=== PATIENT | male | born 1950 | race Caucasian/White ===

== ENCOUNTER 2016-10-22 16:38 | Inpatient (IN) ==
[2016-10-22] MEDS ORDERED: NS 1,000 ML IV ONE (18:08)
[2016-10-22 18:11] LABS: MANUAL DIFF NEEDED? NO
[2016-10-22 18:14] LABS: BASO% 0.2 % (0.0-0.8); EOS# 0.46 X1000 (0.0-0.7); EOS% 7.2 % (0.0-10.0); HEMOGLOBIN 10.9 g/dL (14.0-18.0); IMM GRAN# 0.04 X1000 (0.0-0.04); IMM GRAN% 0.6 % (0.0-0.5); LYMPH# 0.71 X1000 (1.2-3.4); LYMPH% 11.1 % (20.5-51.1); MCH 27.9 PG (27-31); MCHC 34.1 g/dL (33-37); MCV 81.8 FL (81-99); MONO# 0.63 X1000 (0.11-0.59); MONO% 9.9 % (1.7-9.3); PLT 160 X1000 (130-400); RBC 3.91 XMIL (4.7-6.1)
--- NOTE | 2016-10-22 18:32 | PROVIDER DOCUMENTATION ---
HPI-Abdominal Pain/GI Problem - General Chief Complaint: Diarrhea Stated Complaint: n/v/d weakness fall Time Seen by Provider: 10/22/16 16:39 Source: patient Allergies/Adverse Reactions: Patient Allergies Allergy/AdvReac Type Severity Reaction Status Date / Time Sulfa (Sulfonamide AdvReac Mild RASH Verified 10/22/16 17:21 Antibiotics) Home Medications: Home Medication List Medication Instructions Recorded Confirmed Last Taken Type Amitriptyline HCl [Amitriptyline 1 tab PO DAILY 10/23/16 10/23/16 Unknown History HCl] Prednisone [Prednisone] 1 tab PO DAILY 10/23/16 10/23/16 Unknown History Tramadol HCl [Tramadol HCl] 1 tab PO TID PRN PRN 10/23/16 10/23/16 Unknown History Valsartan [Valsartan] 1 tab PO DAILY 10/23/16 10/23/16 Unknown History - History of Present Illness-ABD Nature of Presenting Problems: Pt states that for 2 weeks he has been having diarrhea daily up to 7x/day, no vomiting. Since then he has been gradually feeling more dizzi, and has fallen down 4 times. Dizziness is worse when he gets up out of bed or a chair, sometimes just moving his head makes him dizzi. Pt states that he is afraid of eating because gets diarrhea immediately, it's been almost 4 days without food, but cannot keep up with fluids. Review of Systems - Adult - REVIEW OF SYSTEMS - ADULT Constitutional: reports: no symptoms reported Eyes: reports: no symptoms reported Ears, Nose, Mouth & Throat: reports: no symptoms reported Cardiovascular: reports: no symptoms reported Respiratory: reports: no symptoms reported Gastrointestinal: reports: no symptoms reported Genitourinary: reports: no symptoms reported Musculoskeletal: reports: muscle weakness Neurological: reports: dizziness/vertigo Psychiatric: reports: no symptoms reported Endocrine: reports: no symptoms reported Hematologic/Lymphatic: reports: no symptoms reported Allergic/Immunologic: reports: no symptoms reported All Other Systems: Reviewed and Negative Past History - Adult - PAST MEDICAL HISTORY-ADULT Review of Records: reports: Old Records Reviewed (sarcoid, HTN, gout, DM2), Nursing Assessment Review, Medications Reviewed, Social history reviewed & non- contributory. Physical Exam-General - PHYSICAL EXAM-ADULT Initial Vital Signs Reviewed: Yes - CONSTITUTIONAL General Appearance: appears well, alert, anxious - EYES Eyes: PERRL/EOMI, pink conjunctivae - HEAD, EARS, NOSE, MOUTH & THROAT HENMT: normocephalic/atraumatic, other (very dry mucous membranes) - NECK Neck: non-tender, supple - RESPIRATORY Respiratory: normal breath sounds, no respiratory distress - CARDIOVASCULAR Cardiovascular: regular rate, rhythm - GASTROINTESTINAL (ABDOMEN) Abdominal Exam: non tender, soft - LYMPHATIC Lymphatic: no adenopathy - MUSCULOSKELETAL Back Exam: normal inspection, no CVA tenderness Extremity: normal gait - SKIN Integumentary: normal color - NEUROLOGIC Neurologic: grossly normal - PSYCHIATRIC Psych/Mental Status: normal mood/affect Progress - PLAN OF CARE/RESULTS Progress/Plan/Lab Results: Vital Signs - 8 hr 10/22/16 17:15 Temperature 98.3 F Pulse Rate 93 H Respiratory Rate 18 Blood Pressure 139/94 O2 Sat by Pulse Oximetry 97 Laboratory Results - last 24 hr 10/22/16 17:51 WBC 6.39 RBC 3.91 L Hgb 10.9 L Hct 32.0 L MCV 81.8 MCH 27.9 MCHC 34.1 RDW Std Deviation 15.6 H Plt Count 160 MPV 10.0 Immature Gran % (Auto) 0.6 H Neut % (Auto) 71.0 Lymph % (Auto) 11.1 L [place] % (Auto) 9.9 H Eos % (Auto) 7.2 Baso % (Auto) 0.2 Immature Gran # (Auto) 0.04 Neut # (Auto) 4.54 Lymph # (Auto) 0.71 L [place] # (Auto) 0.63 H Eos # (Auto) 0.46 Baso # (Auto) 0.01 Orders Category Date Time Status IV Insertion ORDERED Care 10/22/16 18:07 Active CBC WITH DIFF [HEME] Stat Lab 10/22/16 17:51 Completed CMP [COMPREHENSIVE METABOLIC PANEL] [CHEM] Stat Lab 10/22/16 17:51 Received 0.9% Sodium Chloride Inj [Ns] 1,000 ml Med 10/22/16 18:08 Active IV 999 mls/hr Result Diagrams: 10/22/16 17:51 10/22/16 17:51 - REASSESSMENT Reassessment #1 Reassessment Comment: no improvement after IV fluids, pt has no prior knowledge of renal issues Departure - Departure Date of Disposition Decision: 10/22/16 Time of Disposition Decision: 19:35 DIAGNOSIS: Hyponatremia Renal failure Qualifiers: Renal failure chronicity: acute Acute renal failure type: unspecified Qualified Code(s): N17.9 - Acute kidney failure, unspecified Disposition: ADMITTED INPATIENT 09 Certified Medical Emergency: Emergent Condition: Stable - Critical Care Note This patient required my direct & personal management of CC.: No Attestation - Physician/ KURTIS Attestation Patient care was provided by Advanced Practice Provider:: Yes Advanced Practice Provider documentation review:: The Mid-level provider documentation, treatment plan and medical decision making was reviewed by the physician who agrees with all treatment and medical decision making by the MLP. The physician spent face to face time with patient:: Yes Advanced Practice Provider documentation review:: Supervising physician onsite and consulted in the evaluation and care of this patient. The physician did have a face to face encounter with the patient.
[2016-10-22 18:44] LABS: ALBUMIN 2.3 g/dL (3.5-5.0); CALCIUM 6.9 mg/dL (8.8-10.2); POTASSIUM 3.5 mmol/L (3.5-5.1); TOTAL BILIRUBIN 0.86 mg/dL (0.20-1.00); TOTAL PROTEIN 5.7 g/dL (6.3-8.3)
[2016-10-22] MEDS ORDERED: D50W SYRINGE ONE ×2 (20:30→20:38)
[2016-10-22] MEDS ORDERED: NS 1,000 ML ONE (20:39)
--- NOTE | 2016-10-22 23:19 | HISTORY AND PHYSICAL ---
CHIEF COMPLAINT: Diarrhea for 2 weeks. HISTORY OF PRESENT ILLNESS: Mr. Coulter is a 65-year-old male with a history of hypertension, diabetes, sarcoidosis, gout, rheumatoid arthritis, who presented to the ER today for persistent diarrhea for 2 weeks. He described the diarrhea as watery, yellow, nonbloody, no melena, roughly a couple of times a day. Every time when she eats or drinks, there will be diarrhea. Denies any fever or chills and abdominal pain associated with the diarrhea. Denies nausea. Denies vomiting. In the meantime, he also has significant weakness due to the diarrhea. He has not been eating and drinking at all for at least 4 days per his description. At some point he had multiple small fall episodes. There was one episode that he described where he lost consciousness and woke up probably the next day in the morning. Denies any head injury. No bleeding. No neurological deficits noted. He lives alone and there are no family members around him for care. He states he has not been having a bath for a couple of days due to this weakness. On his arrival at the ER, the initial lab work showed he has a BUN of 92 and creatinine of 7.5. GFR 7. He denies having a history of kidney problems. The reason for the failure is probably dehydration. At this point the patient will be admitted for hospitalization to investigate the reason for the kidney failure and also hydration. REVIEW OF SYSTEMS: A 10-point review of systems was obtained. Please refer to the HPI for pertinent positives and negatives. PHYSICAL EXAMINATION: VITAL SIGNS: Temperature is 98.3, heart rate 93, respiratory rate 18, blood pressure 139/94, O2 saturation 97 on room air. GENERAL: A well-developed male in no acute distress. Looks weak. Talks slowly. HEENT: Head normocephalic, atraumatic. EOMI. DENEEN. Oral mucosa is dry. NECK: No JVD. No carotid bruit. CARDIOVASCULAR: Regular rate, regular rhythm. Normal S1 and S2. PULMONARY: Clear to auscultation bilaterally. No wheezing. No rales. GASTROINTESTINAL: Abdomen is soft, nontender. No rebound. Nondistended. Active bowel sounds. EXTREMITIES: No edema. Pulses present in all 4 extremities. There are several scratch lam on both knees and elbows. SKIN: No rash. No cyanosis. Normal capillary refill. NEUROLOGICAL: Patient is alert, awake and oriented. No focal deficits noted. I did not have the patient get out of the bed or walk due to his general weakness. LABORATORY DATA: WBC 6.39, hemoglobin and hematocrit 10.9 and 32, platelets 160. Chemistries: Sodium 128, potassium 3.5, chloride 91, bicarb 12, BUN 92, creatinine 7.5, glucose 142, calcium 6.9, AST 28, ALT 49. ASSESSMENT: 1. Acute renal failure. 2. Electrolyte abnormalities. 3. Hypertension. 4. Diabetes. 5. Sarcoidosis. 6. Gout. PLAN: We will admit patient to the medical floor and put him on a telemetry bed with hydration running normal saline at 150 mL per hour. We will recheck his chemistry tomorrow morning. Hopefully with hydration his kidney function and electrolyte abnormalities will return close to the normal range. In the meantime, we are going to order a renal ultrasound and urine sodium test to investigate the source for this episode of acute renal failure which is probably most likely prerenal but, given he has been using NSAIDs and also metformin before this episode, those medications might also have some contribution to it. We also will consult the multi mission helicopter aircrewman for further investigations. At this point, we are holding all his home medications for high blood pressure and diabetes until his dehydration is improved. For DVT prophylaxis, will use SCDs. For GI prophylaxis, we are using Nexium. Full code. cc: Lakisha Carlson MD
[2016-10-22] MEDS ORDERED: ZOFRAN IV PRN (23:44)
[2016-10-23] MEDS: NS 1,000 ML IV SCH ×2 (00:22→07:48)
[2016-10-23 01:06] LABS: ALBUMIN 2.5 g/dL (3.5-5.0); POTASSIUM 3.6 mmol/L (3.5-5.1)
[2016-10-23 01:08] LABS: CALCIUM 6.8 mg/dL (8.8-10.2)
[2016-10-23] MEDS ORDERED: CALCIUM GLUCONATE 1 GM in NS 50 ML IV ONE (02:15)
[2016-10-23 06:34] LABS: HEMOGLOBIN A1C 6.1 % (4.8-6.0)
[2016-10-23 06:58] LABS: ALBUMIN 2.5 g/dL (3.5-5.0); CALCIUM 7.7 mg/dL (8.8-10.2); MAGNESIUM 1.9 mg/dL (1.5-2.7); TOTAL BILIRUBIN 0.76 mg/dL (0.20-1.00); TOTAL PROTEIN 5.7 g/dL (6.3-8.3)
[2016-10-23] MEDS ORDERED: NS 500 ML IV ONE (08:46)
[2016-10-23] MEDS ORDERED: CALCIUM GLUCONATE 1 GM in NS 100 ML IV ONE (09:00)
--- NOTE | 2016-10-23 09:17 | Diag Imaging Result Doc PS360 ---
EXAM: US RENAL 2 (RETROPER) COMPLETE HISTORY: acute renal failure TECHNIQUE: Renal ultrasound COMMENT: There is no evidence of hydronephrosis. There are multiloculated door clustered cysts present in the right kidney which in aggregate is more than 4 cm in diameter with an additional 1.3 cm cyst. The bladder is unremarkable in appearance. The right kidney measures 12.7 x 5.1 x 5.7 cm left kidney 11.8 x 5.5 x 5.7 cm. IMPRESSION: Right renal cysts. No evidence of obstructive uropathy. Electronically signed by Ashu Worrell 10/23/2016 9:14 AM
[2016-10-23] MEDS: PRILOSEC PO SCH (09:27)
[2016-10-23] MEDS: TYLENOL PO PRN ×3 (09:40→23:57)
[2016-10-23] MEDS: POTASSIUM CHLORIDE 60 MEQ in NS 500 ML IV SCH ×2 (12:16→17:20)
--- NOTE | 2016-10-23 14:00 | CONSULTATION ---
DATE OF CONSULTATION: 10/23/2016 REASON FOR ADMISSION: Weakness following acute kidney injury, nausea, vomiting and diarrhea. REASON FOR CONSULTATION: Acute kidney injury. CONSULTING PHYSICIAN: Dr. Barrios. HISTORY OF PRESENT ILLNESS: This is a 65-year-old gentleman with a past medical history of hypertension and diabetes who does not know of any previous decline in his renal function, who presented to the emergency room after episodes of diarrhea for about 2 weeks along with episodes of falling and actually having been down on the floor for possibly an 8 hour period of time after falling at night and not being able to get up until mid morning the next day. In the emergency room, he was found to have an initial creatinine of 7.5 and a BUN of 92. He was felt to be dehydrated. He has been dosed with normal saline now at 150 an hour for close to 24 hours at this point. His renal function really has not improved significantly although it is down to 6.2 today. He seemed mildly acidotic with a CO2 of 15. He did have some urine studies with a FENA score calculated at 0.3%. We have been asked to see the patient for his acute kidney injury. The patient this morning is no longer having nausea, vomiting or diarrhea. He is feeling mildly better and has been able to ambulate with assistance. He has just gotten back from ultrasound. PAST MEDICAL HISTORY: Hypertension, diabetes, sarcoidosis, gout and rheumatoid arthritis. PAST SURGICAL HISTORY: ALLERGIES: Sulfa. HOME MEDICATIONS: Prednisone, sulindac, duloxetine, zolpidem, amlodipine, tramadol, amitriptyline, valsartan, pantoprazole, metformin and Benemid. FAMILY HISTORY: Noncontributory. SOCIAL HISTORY: No ETOH, tobacco or illicit drug use. REVIEW OF SYSTEMS: Weakness, nausea, vomiting, diarrhea falling, and loss consciousness. PHYSICAL EXAMINATION: Vital Signs: Temperature 98.2 degrees, pulse 97, respiratory rate 20, blood pressure 83/48, intake 480 mL. Output has not been measured. General: This is a middle- aged gentleman resting in bed. He is awake and alert in no acute distress. HEENT: Normocephalic, atraumatic. Conjunctivae pink. JUSTINE. Oral mucosa moist. Neck : Supple. Trachea midline. No JVD. Cardiovascular: Regular rate and rhythm. There is no murmur or gallop. Pulmonary: He has equal excursion. He is clear bilaterally. There is no increased work of breathing. Abdomen: Soft. Positive bowel sounds. : Not inspected. He is voiding. Extremities: No clubbing, cyanosis or edema. Integumentary: Skin is pale, warm, and dry. Neurologic: Grossly nonfocal. LABORATORY DATA: WBC of 6.3, hemoglobin 10.9, sodium 133, potassium 3.0, chloride 98, CO2 15, BUN 93, creatinine 6.2 (7.5). FENA at 0.39%. ASSESSMENT AND PLAN: 1. Acute kidney injury. I do not have any old labs to indicate if this patient has any chronic kidney disease secondary to his hypertension or diabetes although he is at risk for that. His renal function had a modest improvement overnight with IV fluids. The patient does not have any indications for dialysis at this time. We will continue the current IV fluids and will also check a CPK as the patient had been down in the floor for some period of time. He does have some acidosis noted. Nonetheless, he has correct current therapy initiated with IV fluid resuscitation. We will continue this and check labs in the morning. Further decisions to follow. 2. Electrolytes, acid-base balance. See #1 for plan. 3. Hypertension. He is mildly hypotensive. This may be fluid deficit related. 4. Nausea, vomiting, and diarrhea followed by primary. Dictated by DAVID Alexis for Cecilio Rodriguez MD Patient seen, data reviewed, discussed with Crystal Christianson on 10/23/16. I agree with the above assessment and plan of care. cc: MD Orestes Gordon MD [facility]
[2016-10-23] MEDS ORDERED: POTASSIUM CHLORIDE 40 MEQ/SWI 40 MEQ/100 ML IVPB IV ONE (18:27)
--- NOTE | 2016-10-23 18:57 | PROGRESS NOTE ---
DATE: 10/23/2016 SUBJECTIVE: A 65-year-old white gentleman admitted to the hospital with diarrhea, hypotension acute kidney injury. The patient was seen in my office for arthritis due to sarcoidosis. He got better off the steroids. Apparently started having diarrhea taking blood pressure medicine, became dizzy and hypotensive. He had calcium that was low and was replaced. PAST MEDICAL HISTORY: Reviewed. PAST SURGICAL HISTORY: Reviewed. MEDICINES: Reviewed. REVIEW OF SYSTEMS: HEENT: Blood pressure is low. No headache, dizziness. Cardiopulmonary: No chest pain, shortness of breath, PND, or orthopnea. GI: No nausea, vomiting, abdominal pain or diarrhea. : History of hesitancy, frequency. Extremities: No swelling of legs. Also history of injuries with abrasions on the hands from the fall. PHYSICAL EXAMINATION: Vital Signs: Afebrile. Blood pressure is still low; 5 feet 11 inches, and 110 pounds. HEENT: Within normal limits. Neck: Supple. Chest: Clear. Heart: Sounds are regular. Abdomen: Belly is soft. Nontender. Good bowel sounds. No masses palpable. Extremities: No peripheral edema, cyanosis. No obvious neurological deficits. DATA: Renal ultrasound benign cyst and no evidence of obstructive uropathy. ASSESSMENT AND PLAN: 1. Acute kidney injury due to hypotension and intravascular volume depletion. Continue intravenous fluids. We will give a bolus and keep the blood pressure more than 100. 2. Diarrhea. Needs to workup on stool cultures and Clostridium difficile was negative, and stool for occult blood was negative. 3. Gastrointestinal prophylaxis with intravenous Protonix. 4. Hypocalcemia. Calcium gluconate and the patient was seen in the ultrasound room. Bladder is full, we will Pereira catheter and follow up on daily renal profile and slowly reconcile his home medicines. 5. Deep venous thrombosis prophylaxis with antithrombotic stockings. LEVEL OF DOCUMENTATION: Thirty-five minutes. cc: Orestes Barrios MD
[2016-10-24] MEDS: TYLENOL PO PRN (05:58)
[2016-10-24] MEDS: PRILOSEC PO SCH (05:59)
[2016-10-24 06:41] LABS: MANUAL DIFF NEEDED? NO
[2016-10-24 06:42] LABS: BASO% 0.4 % (0.0-0.8); EOS# 0.43 X1000 (0.0-0.7); EOS% 15.2 % (0.0-10.0); HEMATOCRIT 31.7 % (42.0-52.0); HEMOGLOBIN 10.5 g/dL (14.0-18.0); LYMPH# 0.47 X1000 (1.2-3.4); LYMPH% 16.7 % (20.5-51.1); MCH 27.6 PG (27-31); MCHC 33.1 g/dL (33-37); MCV 83.4 FL (81-99); MONO# 0.26 X1000 (0.11-0.59); MONO% 9.2 % (1.7-9.3); MPV 10.4 FL (7.4-10.4); NEUT% 58.5 % (42.2-75.2); PLT 134 X1000 (130-400)
[2016-10-24 07:05] LABS: ALBUMIN 2.3 g/dL (3.5-5.0); CALCIUM 7.4 mg/dL (8.8-10.2); POTASSIUM 3.7 mmol/L (3.5-5.1)
--- NOTE | 2016-10-24 10:00 | PROGRESS NOTE ---
DATE: 10/24/2016 SUBJECTIVE: Patient is sitting up in bed. He had dislodged his IV access this morning. Currently, has no access. States he has been able to drink fluids. He states that he still does not have much of an appetite. OBJECTIVE: Vital Signs: Temperature 98.3 degrees, pulse 105, respiratory rate is 18, blood pressure 106/56. Intake 3.6 L. Output 650 mL. General: This is a middle- aged gentleman resting in bed. He is awake and alert. He is in no acute distress. HEENT: Normocephalic, atraumatic. His oral mucosa is moist. Neck: Supple. Trachea midline without JVD. Cardiovascular: He has a regular rate and rhythm. No murmur or gallop is appreciated. Pulmonary: He is clear bilaterally. He has equal excursion without increased work of breathing on 2 L nasal cannula. Abdomen: Obese, soft, positive bowel sounds. : Not inspected. He continues to void. Extremities: No clubbing, cyanosis, or edema. Integumentary: Skin is pale, warm, and dry. LAB DATA: WBC of 2.8, hemoglobin 10.5. Sodium 136, potassium 3.7, CO2 14, BUN 73, creatinine at 3.1. Renal ultrasound with kidney size 12.7 cm x 11.8 cm with right renal cyst noted. ASSESSMENT AND PLAN: 1. Acute kidney injury, secondary to intravascular volume depletion and concurrent angiotensin- receptor bulmaro use. The patient's Diovan has been held at this time. He continues with fluid resuscitation. Anticipate that he will have some further improvement by morning. I did discuss with the patient we do not know what his baseline creatinine is. But we would be glad to follow up with him in the office after discharge, if his renal function remains abnormal. He is at high risk to have chronic kidney disease secondary to his diabetes and hypertension. 2. Electrolytes, acid-base balance. These have been stable. 3. Fluid volume. He is not overloaded. His urine output has begun picking up. Dictated by DAVID Alexis for Cecilio Rodriguez MD Patient seen, data reviewed, discussed with Crystal Christianson on 10/23/16. I agree with the above assessment and plan of care. cc: MD Orestes Gordon MD [facility]
--- NOTE | 2016-10-24 18:43 | PROGRESS NOTE ---
DATE: 10/24/2016 SUBJECTIVE: The patient is doing very well. Complains of right ear pain. REVIEW OF SYSTEMS: None reported. EXAMINATION: Afebrile. Pulse is 98, blood pressure is 106/56. Input and output positive 3 L.HEENT: Within normal limits. Right ear no wax noted. Chest: Clear. Heart: Sounds are regular. Abdomen: Belly is soft, nontender. Good bowel sounds. No masses palpable. Extremities: No peripheral edema, cyanosis. Neurologic: No obvious neurological deficits. INVESTIGATIONS: CBC, white cell count 2.8, hematocrit 31, platelets 134,000. SMA 7, sodium 136, potassium 3.7, chloride 100, BUN 73, creatinine 3.12, and glucose 132. A1c 6.1. Calcium 7.4. Albumin 2.3. ASSESSMENT AND PLAN: 1. Acute kidney injury due to hypovolemia. Continue IV fluids and follow up on daily SMA 7. 2. Right ear pain. No evidence of pathology noted. 3. Once the blood pressure is stable slowly cut down the fluids and follow up on orthostatic blood pressure. 4. Diarrhea, nonspecific, and stool cultures were negative. Continue present medical therapy. LEVEL OF DOCUMENTATION: 25 minutes. cc: Orestes Barrios MD
[2016-10-24] MEDS ORDERED: ANUSOL-HC SUPP PR PRN (18:51)
[2016-10-25 05:40] LABS: MANUAL DIFF NEEDED? NO
[2016-10-25 06:12] LABS: BASO% 0.9 % (0.0-0.8); EOS# 0.41 X1000 (0.0-0.7); EOS% 17.4 % (0.0-10.0); HEMATOCRIT 29.9 % (42.0-52.0); HEMOGLOBIN 9.8 g/dL (14.0-18.0); LYMPH# 0.88 X1000 (1.2-3.4); LYMPH% 37.4 % (20.5-51.1); MCH 27.6 PG (27-31); MCHC 32.8 g/dL (33-37); MCV 84.2 FL (81-99); MONO# 0.37 X1000 (0.11-0.59); MONO% 15.7 % (1.7-9.3); MPV 10.6 FL (7.4-10.4); NEUT% 28.6 % (42.2-75.2); PLT 88 X1000 (130-400); RBC 3.55 XMIL (4.7-6.1)
[2016-10-25 06:24] LABS: ALBUMIN 2.1 g/dL (3.5-5.0); POTASSIUM 3.6 mmol/L (3.5-5.1)
[2016-10-25 06:30] LABS: CALCIUM 6.8 mg/dL (8.8-10.2)
[2016-10-25] MEDS: TYLENOL PO PRN (06:49)
[2016-10-25] MEDS: PRILOSEC PO SCH (06:50)
[2016-10-25] MEDS ORDERED: CALCIUM GLUCONATE 2 GM in NS 100 ML IV ONE (08:30)
[2016-10-25] MEDS: NS 1,000 ML IV SCH ×2 (09:13→22:51)
--- NOTE | 2016-10-25 13:21 | PROGRESS NOTE ---
DATE: 10/25/2016 SUBJECTIVE: The patient is sitting up in bed. He has eaten a little bit of breakfast. He is wanting to advance his diet. OBJECTIVE: Vital Signs: Temperature 97.8 degrees, pulse 100, respiratory rate 16, blood pressure 90/44. Intake 1.2 L. Output 400 mL. PHYSICAL EXAMINATION: General: This is a middle-aged gentleman resting in bed. He is awake and alert in no acute distress. HEENT: Normocephalic, atraumatic. His oral mucosa is moist. Neck: Supple. Trachea midline. No JVD. Cardiovascular: Regular rate and rhythm. No murmur or gallop. Pulmonary: Equal excursion. He is clear bilaterally. Abdomen: Soft , round, positive bowel sounds. Genitourinary: Not inspected. He is voiding. Extremities: Trace pretibial edema. No clubbing, cyanosis. Integumentary: Skin is warm and dry otherwise. LABORATORY DATA: WBC of 2.3, hemoglobin 9.8, sodium 140, potassium 3.6, CO2 of 16, creatinine 2.0. ASSESSMENT AND PLAN: 1. Acute kidney injury with continued improvement. Creatinine is down to 2 from 3.1 yesterday and from 6.2 the day before with IV fluid resuscitation. We will continue current treatment as the patient does not appear fluid overloaded and urine output has been adequate. If the patient is discharged prior to renal function returning to a normal state, we will be more than happy to see him in the office in 2 weeks with followup labs in the interim. 2. Electrolytes, acid-base balance, anemia. These are acceptable and improving. 3. Fluid volume. Urine output has been improving. He is still in positive territory. 4. Dietary needs. He can be transitioned back to a regular diet. We will go ahead and place that order in the computer this morning. Dictated by DAVID Alexis for Cecilio Rodriguez MD Patient seen, data reviewed, discussed with Crystal Christianson on 10/25/16. I agree with the above assessment and plan of care. cc: MD Orestes Gordon MD [facility]
--- NOTE | 2016-10-26 03:17 | PROGRESS NOTE ---
DATE: 10/25/2016 SUBJECTIVE: The patient is doing very well. IV fluids were stopped and blood pressure is still running on the low side. No complaints. I Os are positive 790. OBJECTIVE: HEENT Examination: Within normal limits. Neck: Supple. Chest: Clear to auscultation. Heart: Sounds are regular. Abdomen: Belly is soft, nontender. Good bowel sounds. Extremities: No peripheral edema, cyanosis. No obvious neurological deficits. INVESTIGATIONS: CBC: White cell count 2.3, hematocrit 29, platelets 88,000. SMA-7: BUN 54, creatinine 2.0. Calcium 6.8, sodium 140. Chloride 110, albumin 2.1. ASSESSMENT AND PLAN: 1. Acute kidney injury due to hypovolemia, improving. Continue IV fluids 80 an hour. 2. Hypocalcemia. Replace the calcium gluconate. 3. Diarrhea. Stool cultures were negative. 4. History of hemorrhoids. Hydrocortisone suppository as needed. Daily monitoring. CBC and renal profile. 5. Gastrointestinal prophylaxis with Prilosec 40 mg daily. LEVEL OF DOCUMENTATION: Was 25 minutes. cc: Orestes Barrios MD
[2016-10-26] MEDS: PRILOSEC PO SCH (06:17)
[2016-10-26 07:06] LABS: CALCIUM 7.2 mg/dL (8.8-10.2); POTASSIUM 3.6 mmol/L (3.5-5.1)
[2016-10-26 07:32] LABS: BASO% 0.5 % (0.0-0.8); EOS# 0.41 X1000 (0.0-0.7); EOS% 19.4 % (0.0-10.0); HEMATOCRIT 28.8 % (42.0-52.0); HEMOGLOBIN 9.3 g/dL (14.0-18.0); LYMPH# 1.16 X1000 (1.2-3.4); MANUAL DIFF NEEDED? YES; MCH 27.6 PG (27-31); MCHC 32.3 g/dL (33-37); MCV 85.5 FL (81-99); MONO# 0.34 X1000 (0.11-0.59); MONO% 16.1 % (1.7-9.3); MPV 10.9 FL (7.4-10.4); PLT 85 X1000 (130-400); RBC 3.37 XMIL (4.7-6.1)
[2016-10-26 07:50] LABS: BANDS 2 % (0-1); EOS 10 % (1-10); LYMPHS 50 % (21-51); MONO 2 % (1-9)
[2016-10-26] MEDS: NS 1,000 ML IV SCH ×2 (11:07→23:57)
--- NOTE | 2016-10-26 17:10 | PROGRESS NOTE ---
DATE: 10/26/2016 SUBJECTIVE: Patient resting in bed. He feels better. He has been ambulatory. He thinks he may go home tomorrow. OBJECTIVE: Vital Signs: Temperature 98.7 degrees, pulse 120, respiratory rate 20, blood pressure 111/55. Intake 1.4 L. Output 975 mL. PHYSICAL EXAMINATION: General: This is a middle-aged gentleman resting in bed. He is awake, alert, in no acute distress. HEENT: Normocephalic, atraumatic. Oral mucosa moist. Neck: Supple. Trachea midline. No JVD. Cardiovascular: Regular rate and rhythm. Pulmonary: Equal excursion. Clear bilaterally. Abdomen: Soft. Positive bowel sounds. : He is voiding. Extremities: No clubbing, cyanosis or edema. Integumentary: Skin is warm and dry. LAB DATA: WBC of 2.1, hemoglobin 9.3, sodium 142, potassium 3.6, CO2 16, creatinine 1.5. ASSESSMENT AND PLAN: Acute kidney injury, prerenal. Renal function has continued to improve steadily since admission. Creatinine is down to 1.5. At this time we will go ahead and sign off. I did discuss with the patient we would want to follow up with him at least once in the office after discharge just to verify that his renal function has returned back to normal. We never did have a baseline creatinine of this patient prior to his hospitalization. He does have comorbidities of diabetes and hypertension. We will check a CBC and a renal profile and urine protein creatinine ratio in the office in 2 weeks. Dictated by DAVID Alexis for Cecilio Rodriguez MD Patient seen, data reviewed, discussed with Crystal Christianson on 10/27/16. I agree with the above assessment and plan of care. cc: MD Orestes Gordon MD [facility]
--- NOTE | 2016-10-26 22:14 | PROGRESS NOTE ---
DATE: 10/26/2016 SUBJECTIVE: The patient is better. Blood pressure is going up. REVIEW OF SYSTEMS: None reported. No diarrhea. PHYSICAL EXAMINATION: Vital signs: Afebrile. Still orthostatic. Input and output are positive. HEENT: Within normal limits. Neck: Supple. Chest: Clear. Heart: Sounds are regular. Abdomen: Belly is soft, nontender. Good bowel sounds. Neurologic: No obvious neurological deficits. INVESTIGATIONS: CBC: White cell count 2.1, hematocrit 29, platelets 85,000. SMA7 is normal. BUN 33, creatinine 1.5, glucose 123, calcium 7.2. ASSESSMENT AND PLAN: 1. Acute kidney injury due to hypovolemia. Better. Discontinue valsartan. 2. The patient has a history of sarcoidosis on prednisone. Check the cortisol level in the morning and after that, we will start on stress dose of hydrocortisone. 3. Advance the diet. Continue on IV fluids. 4. Pancytopenia. We will continue to watch. We will check the reticulocyte count in the morning. Based on that, further recommendations will be followed. LEVEL OF DOCUMENTATION: 25 minutes. cc: Orestes Barrios MD
[2016-10-27] MEDS: PRILOSEC PO SCH (06:05)
[2016-10-27 07:05] LABS: AGAP 11; ALBUMIN 1.9 g/dL (3.5-5.0); ALKALINE PHOSPHATASE 74 U/L (32-122); BUN 22 mg/dL (8-22); CALCIUM 6.9 mg/dL (8.8-10.2); CHLORIDE 114 mmol/L (98-107); COSMO 284; GOT 17 U/L (10-34); GPT 38 U/L (10-44); POTASSIUM 3.6 mmol/L (3.5-5.1); SODIUM 141 mmol/L (136-145); TCO2 16 mmol/L (25-35); TOTAL BILIRUBIN 0.53 mg/dL (0.20-1.00); TOTAL PROTEIN 5.1 g/dL (6.3-8.3)
[2016-10-27 07:12] LABS: BASO% 0.5 % (0.0-0.8); EOS# 0.29 X1000 (0.0-0.7); EOS% 14.6 % (0.0-10.0); HEMATOCRIT 27.2 % (42.0-52.0); HEMOGLOBIN 8.6 g/dL (14.0-18.0); LYMPH# 1.26 X1000 (1.2-3.4); LYMPH% 63.6 % (20.5-51.1); MANUAL DIFF NEEDED? YES; MCH 27.2 PG (27-31); MCHC 31.6 g/dL (33-37); MCV 86.1 FL (81-99); MONO# 0.39 X1000 (0.11-0.59); MONO% 19.7 % (1.7-9.3); MPV 9.9 FL (7.4-10.4); NEUT% 1.6 % (42.2-75.2); PLT 88 X1000 (130-400); RBC 3.16 XMIL (4.7-6.1); RETIC% 0.26 % (0.8-2.1); RETIC-HE 32.3 PG (28.2-36.6)
[2016-10-27 07:41] LABS: EOS 20 % (1-10); LYMPHS 60 % (21-51); MONO 8 % (1-9)
[2016-10-27 10:11] LABS: IRON SATURATION 20 %; TIBC 109 ug/dL; TOTAL IRON 22 ug/dL (53-167); UNBOUND IRON 87 ug/dL (112-346)
[2016-10-27] MEDS: SOLU-MEDROL IV SCH ×2 (10:32→18:29)
[2016-10-27] MEDS: NS 1,000 ML IV SCH (10:39)
--- NOTE | 2016-10-27 11:52 | Diag Imaging Result Doc PS360 ---
EXAM: US ABDOMEN-COMPLETE HISTORY: pancytopenia TECHNIQUE: COMPARISON: None. FINDINGS: The aorta, inferior vena cava, and pancreas are all obscured by overlying bowel gas. I believe there is mild fatty infiltration of the liver. No focal hepatic abnormality. There are several renal cysts. The largest on the right measures 4.2 cm. No hydronephrosis to either kidney. Spleen is not enlarged. No ascites. The gallbladder has been removed. The common bile duct measures 5 mm. IMPRESSION: 1.Cholecystectomy 2.Fatty infiltration of the liver 3.Right renal cysts Electronically signed by Bao Urias 10/27/2016 11:50 AM
[2016-10-27] MEDS: GRANIX SUBQ SCH (13:33)
--- NOTE | 2016-10-27 15:55 | CONSULTATION ---
DATE OF CONSULTATION: 10/27/2016 REASON FOR CONSULTATION: Pancytopenia. HISTORY OF PRESENT ILLNESS: This is a male, who came to the ER on 11/2016 with persistent diarrhea of 2 weeks. He denied any clinical bleeding, any black or bright red stools. He had not been unable to eat or drink much due to this ongoing diarrhea and he had had some significant weakness. He also had some recent falls, including one where he lost consciousness. Upon admission his creatinine was 7.5. His admission labs showed a white count of 6.39, hemoglobin 10.9, hematocrit 32, and platelet count of a 160,000. On the subsequent days his counts have steady dropped. It does not look like the patient has received any antibiotics since this hospitalization; however, on 10/25/2016 his granulocytes dropped to 670, hemoglobin was 9.8, and platelet count was 88,000. Today his white count is 1.98 hemoglobin 8.6, hematocrit 37.2, platelet count is 88,000 and his granulocytes are 30. His creatinine; however, has come down to 1.2. He is a afebrile. His stool culture is negative. His stool for Clostridium difficile is negative. He denies any fever at home. The patient denies any lumps, bumps or bone pain. His diarrhea has essentially resolved at this point. REVIEW OF SYSTEMS: Are negative unless indicated in the HPI. PAST MEDICAL HISTORY: Sarcoidosis, gout, rheumatoid arthritis, diabetes, hypertension. FAMILY AND SOCIAL HISTORY: Patient has a supportive family. Denies alcohol, illicit drug or tobacco use. PHYSICAL EXAMINATION: Vital Signs are stable. General: This is a male in no acute distress. HEENT: Head is normocephalic, atraumatic. Oral mucosa is dry. Neck : Supple. Cardiovascular: S1, S2 audible to auscultation without heaves, lifts, thrills. Pulmonary: Breath sounds clear auscultation with normal respiratory effort. GI: Abdomen soft, nondistended. Positive bowel sounds. Extremities: No petechia no edema. Skin: No petechiae , ecchymosis, or rash. Neurologic: Alert and orient x 3. Psychiatric: Appropriate to the situation. DIAGNOSTIC DATA: WBC is 1.98 with granulocytes 30 today, hemoglobin 8.6, hematocrit 37.2, platelet count 88,000, percent reticulocyte is 0.26. Sodium is 141, potassium 3.6, BUN 22, creatinine 1.2. Ferritin is 525. ASSESSMENT AND PLAN: 1. Pancytopenia. He reports he is feeling better over the past week. We have ordered a stat LDH. If that comes back okay, we will plan for Neupogen. The patient has been afebrile and has not been on any antibiotics this hospitalization that I can see. Will check an ultrasound of the abdomen and perform further workup and manage accordingly. 2. Acute kidney injury, much improved. 3. Sarcoidosis on prednisone. 4. Diarrhea, resolving. His some stool cultures and Clostridium difficile have been negative. 5. Gastrointestinal and deep vein thrombosis prophylaxis with SCDs and Prilosec. Dictated by DAVID Edmond for Kervin Tamayo MD cc: DAVID Edmond MD Jagan Reddy, MD [facility]ITAL[facility]ism[facility]
--- NOTE | 2016-10-27 17:45 | PROGRESS NOTE ---
DATE: 10/27/2016 SUBJECT: The patient is doing very well. Intermittent right ear pain. REVIEW OF SYSTEMS: None reported. EXAMINATION: General: He is still orthostatic. HEENT: Within normal limits. Neck: Supple. No lymphadenopathy. Chest: Clear to auscultation. Heart: Sounds are regular. Belly: Soft, nontender. Good bowel sounds. No masses palpable. Extremities: No peripheral edema, cyanosis. Neuro: No obvious neurological deficits. LABS: Cardizem level 8.5. CBC. White cell count 1.9, hematocrit 27, platelets 88,000. SMA 7. Sodium 140, potassium 3.6, chloride 114, BUN 22, creatinine 1.2, calcium 6.9, phosphorus 2.1, albumin 1.9. LFTs were normal. Sedimentation rate is 25, reticulocyte count 0.26, lymphocytes 60, eosinophils 8, eosinophils 20. ASSESSMENT AND PLAN: 1. Acute kidney injury due to hypertension improved. 2. Hypocalcemia. Replace the calcium gluconate. 3. Hypophosphatemia. Replace the potassium and phosphate. 4. Sarcoidosis on prednisone with arthritis and not receiving steroids. Will start on stress dose of IV Solu-Medrol since he is orthostatic. 5. Pancytopenia with eosinophilia, low reticulocyte count. Dr. Tamayo consult. 6. Right ear pain. Otoscope exam is unremarkable. LEVEL OF DOCUMENTATION: 25 minutes. cc: Orestes Barrios MD
[2016-10-27] MEDS ORDERED: POTASSIUM PHOSPHATE 30 MEQ in NS 250 ML IV ONE (18:00)
[2016-10-27] MEDS ORDERED: CALCIUM GLUCONATE 1 GM in NS 50 ML IV ONE (18:30)
[2016-10-28] MEDS: SOLU-MEDROL IV SCH ×3 (01:00→16:52)
[2016-10-28] MEDS: NS 1,000 ML IV SCH ×2 (06:02→11:00)
[2016-10-28] MEDS: PRILOSEC PO SCH (06:02)
[2016-10-28 07:12] LABS: EOS# 0.01 X1000 (0.0-0.7); EOS% 0.9 % (0.0-10.0); HEMATOCRIT 24.8 % (42.0-52.0); HEMOGLOBIN 7.9 g/dL (14.0-18.0); LYMPH# 0.73 X1000 (1.2-3.4); LYMPH% 65.2 % (20.5-51.1); MANUAL DIFF NEEDED? YES; MCH 27.1 PG (27-31); MCHC 31.9 g/dL (33-37); MCV 84.9 FL (81-99); MONO# 0.38 X1000 (0.11-0.59); MONO% 33.9 % (1.7-9.3); MPV 10.3 FL (7.4-10.4); PLT 79 X1000 (130-400); RBC 2.92 XMIL (4.7-6.1)
[2016-10-28] MEDS ORDERED: VENOFER 500 MG in NS 250 ML IV ONE (07:25)
[2016-10-28] MEDS ORDERED: TYLENOL PO ONE (07:25)
[2016-10-28] MEDS ORDERED: BENADRYL IV ONE (07:25)
[2016-10-28 07:50] LABS: AGAP 12; ALBUMIN 2.1 g/dL (3.5-5.0); BUN 21 mg/dL (8-22); CALCIUM 6.8 mg/dL (8.8-10.2); CHLORIDE 113 mmol/L (98-107); COSMO 288; POTASSIUM 4.3 mmol/L (3.5-5.1); SODIUM 141 mmol/L (136-145); TCO2 16 mmol/L (25-35)
[2016-10-28] MEDS ORDERED: CALCIUM GLUCONATE 2 GM in NS 100 ML IV ONE (07:57)
[2016-10-28 09:09] LABS: LYMPHS 65 % (21-51); MONO 30 % (1-9)
[2016-10-28 09:10] LABS: HYPOCHROM 1+
[2016-10-28] MEDS: GRANIX SUBQ SCH (09:31)
[2016-10-28 11:08] LABS: FLOW CYTOMETERY SOURCE WHOLE BLOOD; LEUKEMIA LYMPHOMA BY FLOW REFERRED FOR TESTING
[2016-10-28] MEDS: LEVAQUIN 500 MG/D5W 500 MG/100 ML IVPB IV SCH (11:56)
--- NOTE | 2016-10-28 13:48 | PROGRESS NOTE ---
DATE: 10/28/2016 SUBJECTIVE: Events were noted. Patient was moved to the third floor in isolation room after the significant pancytopenia. I appreciated Dr. Tamayo's consultation. REVIEW OF SYSTEMS: HEENT: Right ear pain. No sore throat. Cardiopulmonary: No chest pain, shortness of breath. GI: No GI symptoms of nausea, vomiting, abdominal pain. No lymphadenopathy. Neurologic: No neurological symptoms. PHYSICAL EXAMINATION: Vital Signs: Afebrile. Vitals are stable. He is not orthostatic. HEENT Exam: Right tympanic membrane is normal. Nose and throat within normal limits. Neck: Supple. No lymphadenopathy. No goiter. Chest exam: Bilateral air entry. Heart: Sounds are regular. Abdomen: Belly is soft, nontender. Good bowel sounds. No masses palpable. Extremities: No peripheral edema, cyanosis. Neurological: No obvious neurological deficits. INVESTIGATIONS: CBC: White cell count 1.1, hematocrit 24, platelets 79, neutrophils 0, lymphocytes 65, monocytes 30. Sedimentation rate was 25. Reticulocyte count is low. SMA 7: Sodium 141, potassium 4.3, chloride 113 and calcium 6.8. Albumin is 2.1. B 12 is normal. Folate is normal. LDH is 262, slightly high. Iron is 22, ferritin is 525. Ultrasound of the abdomen: Cholecystectomy with fatty liver and right renal cyst. ASSESSMENT AND PLAN: 1. Acute kidney injury due to prerenal resolving after blood pressure is stable. 2. Hypotension. Getting better. Discontinue valsartan. 3. Sarcoidosis on prednisone. Stress dose of steroids: Cut down the steroids 40 intravenous every 8 hours. 4. Since the patient is eating well, cut down the fluids 50 an hour. 5. Hypocalcemia. Looks like mostly from hypoalbuminemia, asymptomatic. Calcium gluconate was given. 6. Absolute neutrophil count almost zero. High risk for infection. Empirical antibiotics with Levaquin. 7. Pancytopenia. Normal B 12, normal folate. Reticulocyte count is low. LDH is high. Ultrasound: No splenomegaly. Flow cytometry was pending. Discussed with the family as well as the patient at bedside more than 35 minutes about possible biopsy intervention on Sunday and discussed with Dr. Tamayo. For pancytopenia, the patient was given Granix 480 mcg subcutaneous daily. Will follow up. LEVEL OF DOCUMENTATION: 35 minutes. We will continue on the contact precautions. cc: Orestes Barrios MD
[2016-10-29] MEDS: SOLU-MEDROL IV SCH ×2 (00:05→09:45)
[2016-10-29] MEDS: PRILOSEC PO SCH (06:39)
[2016-10-29] MEDS: NS 1,000 ML IV SCH (06:40)
[2016-10-29 07:26] LABS: HEMATOCRIT 25.6 % (42.0-52.0); HEMOGLOBIN 8.1 g/dL (14.0-18.0); LYMPH# 0.97 X1000 (1.2-3.4); LYMPH% 61.8 % (20.5-51.1); MANUAL DIFF NEEDED? YES; MCH 27.4 PG (27-31); MCHC 31.6 g/dL (33-37); MCV 86.5 FL (81-99); MONO# 0.45 X1000 (0.11-0.59); MONO% 28.7 % (1.7-9.3); MPV 10.9 FL (7.4-10.4); NEUT% 9.5 % (42.2-75.2); PLT 83 X1000 (130-400); RBC 2.96 XMIL (4.7-6.1)
[2016-10-29 07:42] LABS: BANDS 4 % (0-1); LYMPHS 68 % (21-51); MONO 16 % (1-9)
[2016-10-29 08:06] LABS: AGAP 10; BUN 23 mg/dL (8-22); CALCIUM 7.1 mg/dL (8.8-10.2); CHLORIDE 116 mmol/L (98-107); COSMO 289; POTASSIUM 4.2 mmol/L (3.5-5.1); SODIUM 143 mmol/L (136-145); TCO2 17 mmol/L (25-35)
[2016-10-29] MEDS: LEVAQUIN 500 MG/D5W 500 MG/100 ML IVPB IV SCH (09:45)
[2016-10-29] MEDS: GRANIX SUBQ SCH (09:45)
--- NOTE | 2016-10-29 15:09 | PROGRESS NOTE ---
DATE: 10/29/2016 SUBJECTIVE: The patient continues to improve. No complaints. No fatigue and weakness. Discussed with Dr. Tamayo. OBJECTIVE: Vital signs: His hemodynamics are getting better. He is not orthostatic. Afebrile, vitals are stable. HEENT: Exam within normal limits. Chest: Clear. Heart: Sounds are regular. Abdomen: Belly is soft, obese, nontender. Good bowel sounds. neurologic: No neurological deficits. INVESTIGATIONS: CBC: White cell count 1.5, hematocrit 25, platelets 83,000. SMA 7 is normal. Calcium 7.1. CRP is 18.35. LDH is high. Flow cytometry was pending. Stool for occult blood was negative. C. difficile was negative. ASSESSMENT AND PLAN: 1. Pancytopenia. Discussed with Dr. Tamayo, and also will get human immunodeficiency virus test in the morning. SPEP flow cytometry, will hold on the biopsy. Continue on Granix. 2. Acute kidney injury, improving. Hemodynamics are stable. Slow taper of prednisone. LEVEL OF DOCUMENTATION: 25 minutes. cc: Orestes Barrios MD
[2016-10-29] MEDS ORDERED: SOLU-MEDROL IV SCH (21:00)
[2016-10-30] MEDS: PRILOSEC PO SCH ×2 (05:52→07:54)
[2016-10-30] MEDS: NS 1,000 ML IV SCH (05:52)
[2016-10-30 07:03] LABS: HEMATOCRIT 25.8 % (42.0-52.0); IMM GRAN# 0.03 X1000 (0.0-0.04); IMM GRAN% 1.1 % (0.0-0.5); LYMPH% 34.2 % (20.5-51.1); MANUAL DIFF NEEDED? YES; MCV 87.2 FL (81-99); MONO# 0.51 X1000 (0.11-0.59); MONO% 19.4 % (1.7-9.3); MPV 10.9 FL (7.4-10.4); NEUT% 45.3 % (42.2-75.2); PLT 78 X1000 (130-400); RBC 2.96 XMIL (4.7-6.1)
[2016-10-30 07:21] LABS: AGAP 7; BUN 21 mg/dL (8-22); CALCIUM 7.1 mg/dL (8.8-10.2); CHLORIDE 115 mmol/L (98-107); COSMO 287; POTASSIUM 4.4 mmol/L (3.5-5.1); SODIUM 142 mmol/L (136-145); TCO2 20 mmol/L (25-35)
[2016-10-30 07:27] LABS: BANDS 6 % (0-1); LYMPHS 32 % (21-51)
[2016-10-30] MEDS ORDERED: SOLU-MEDROL IV SCH (09:00)
[2016-10-30] MEDS: LEVAQUIN 500 MG/D5W 500 MG/100 ML IVPB IV SCH (09:52)
[2016-10-30] MEDS: GRANIX SUBQ SCH (11:56)
[2016-10-30] MEDS ORDERED: NEOSPORIN OINTMENT TUBE TOP ONE (15:46)
--- NOTE | 2016-10-30 18:13 | PROGRESS NOTE ---
DATE: 10/30/2016 SUBJECTIVE: Patient reports that he feels quite well. Appetite is good and he is eating better. He is getting out of bed. No fevers. PHYSICAL EXAMINATION: Vital signs: Temperature 97.7 degrees, pulse 95, blood pressure 116/55. HEENT: Eyes anicteric. Mucous membranes are moist. Cardiac Exam: Regular rate and rhythm. Normal S1, S2. Chest: Clear to auscultation. Abdomen: Soft, nontender, without hepatosplenomegaly or masses. Extremities: Reveal 1 to 2+ edema. LABS: White count 2.6, hemoglobin 8, hematocrit 25.8, platelets 78,000, MPV 10.9, ANC 1.19. retic 0.03. BUN 21, creatinine 1.11. ASSESSMENT AND PLAN: 1. Pancytopenia: This is likely related to his recent infection. With Granix, his white count is improving. We will stop his Granix once his ANC is greater than 1.5. His platelet count and subsequently is reticulocyte count will follow. We had sent off flow cytometry and the results are still pending. For now, I believe we can hold off on a bone marrow biopsy. 2. Acute kidney injury: Much better. cc: MD Orestes Beauchamp MD MTDD
[2016-10-30] MEDS: TYLENOL PO PRN (20:33)
--- NOTE | 2016-10-30 21:20 | PROGRESS NOTE ---
DATE: 10/30/2016 SUBJECT: Patient is doing much better. No fatigue, ambulating well. REVIEW OF SYSTEMS: None reported. EXAMINATION: Vital signs: Afebrile, hemodynamics were stable, is not orthostatic, I's and O's are even. HEENT: Within normal limits. Neck: Supple. Chest: Clear. Heart : Sounds are regular. Belly: Soft, nontender. Good bowel sounds. Neuro: No neurological deficits. INVESTIGATIONS: CBC, white cell count 2.6, hematocrit 26, platelets 78,000, neutrophils 62. SMA 7 is normal. Protein electrophoresis is normal. HIV, flow cytometries pending. ASSESSMENT AND PLAN: 1. Orthostatic hypotension improving, discontinue IV fluids, cut down the prednisone. 2. Diarrhea probably from vital illness improving. 3. Pancytopenia improving hold on bone marrow biopsy. Will discontinue Granix if ANC more than 1500. Prophylactic antibiotics with Levaquin. Discontinue contact isolation and follow up on the pending labs. LEVEL OF DOCUMENTATION: 25 minutes. cc: Orestes Barrios MD MTDD
[2016-10-31] MEDS: PRILOSEC PO SCH (06:51)
[2016-10-31] MEDS: TYLENOL PO PRN ×2 (06:52→20:59)
[2016-10-31] MEDS: LEVAQUIN 500 MG/D5W 500 MG/100 ML IVPB IV SCH (09:14)
[2016-10-31] MEDS: PREDNISONE PO SCH (09:14)
[2016-10-31 10:37] LABS: HIV ANTIBODY SCREEN SEE COMMENTS
--- NOTE | 2016-10-31 18:09 | PROGRESS NOTE ---
DATE: 10/31/2016 HISTORY OF PRESENT ILLNESS: The patient feels well. He refused CBC today due to multiple sticks. No new complaints today. PHYSICAL EXAMINATION: Vital signs: Afebrile, vital signs are stable. Eyes: EOMI. PERRLA. Anicteric. Mucous membranes are moist. Cardiac: Regular rate and rhythm. Normal S1, S2. Chest: Clear to auscultation. Abdomen: Soft, nontender, without hepatosplenomegaly or masses. LABORATORIES: None today. No CBC today. Flow cytometry: Verbal report: No evidence of leukemia or lymphoma. ASSESSMENT/PLAN: Pancytopenia: Counts are improving. Most likely due to his recent infectious episode. Flow cytometry is negative for leukemia and lymphoma. Check CBC in the morning. If everything is well, he can be discharged. We will continue to monitor outpatient. cc: MD Orestes Beauchamp MD
--- NOTE | 2016-10-31 21:39 | PROGRESS NOTE ---
DATE: 10/31/2016 SUBJECTIVE: The patient refusing blood workup today. He is feeling much better. He is not offering any complaints. PHYSICAL EXAMINATION: Vital Signs: Hemodynamics stable. HEENT: Exam within normal limits. Neck: Supple. No lymphadenopathy. Chest: Clear to auscultation. Heart: Sounds are regular. Neurologic: Exam nonfocal. LABORATORY STUDIES: Labs were not done. Flow cytometry is negative. ASSESSMENT AND PLAN: 1. Acute kidney injury, improving. 2. Pancytopenia, improving. Dr. Tamayo is going to discontinue Granix. We will follow as an outpatient. 3. Discontinue steroids to p.o. prednisone. If he is stable, he will be discharged in the morning. LEVEL OF DOCUMENTATION: 15 minutes. cc: Orestes Barrios MD
[2016-10-31 22:09] LABS: EOS# 0.24 X1000 (0.0-0.7); EOS% 9.3 % (0.0-10.0); HEMATOCRIT 26.1 % (42.0-52.0); HEMOGLOBIN 8.2 g/dL (14.0-18.0); LYMPH# 0.88 X1000 (1.2-3.4); LYMPH% 34.2 % (20.5-51.1); MANUAL DIFF NEEDED? NO; MCHC 31.4 g/dL (33-37); MCV 89.1 FL (81-99); MONO# 0.21 X1000 (0.11-0.59); MONO% 8.2 % (1.7-9.3); MPV 10.8 FL (7.4-10.4); NEUT% 48.3 % (42.2-75.2); PLT 61 X1000 (130-400); RBC 2.93 XMIL (4.7-6.1)
[2016-11-01 05:44] VITALS: BP 128/64
[2016-11-01] MEDS: PRILOSEC PO SCH (06:23)
[2016-11-01] MEDS: PREDNISONE PO SCH ×2 (07:56→08:01)
[2016-11-01] MEDS ORDERED: PREVNAR 13 IM ONE (09:06)
--- NOTE | 2016-11-04 20:21 | DISCHARGE SUMMARY ---
ADMISSION DATE: 10/22/2016 DISCHARGE DATE: 11/01/2016 DISCHARGE DIAGNOSES: 1. Acute kidney injury due to orthostatic hypotension due to intravascular volume dehydration. 2. Pancytopenia, presumed to be viral. 3. History of sarcoidosis with arthritis. 4. History of gout. 5. Diabetes. 6. Hypertension. CONSULTS: 1. Dr. Rodriguez. 2. Dr. Tamayo. BRIEF HISTORY: Please see the H and P that was done on 10/22/2016 by hospitalist. In brief, this is a 65-year-old pleasant white gentleman with the above medical problems. He was seen in my office a week ago before admission with joint pains. He has underlying sarcoid, dependent on prednisone. He was given a steroid shot followed by his symptoms much improved. He started having some fatigue, weakness, GI symptoms with diarrhea. He was getting low blood pressure. He was advised to stop taking valsartan. He went home. He continued to deteriorate and came to the hospital with hypertension and acute kidney injury. HOSPITAL COURSE: He was started on IV fluids. Ultrasound did not show any evidence of postobstructive uropathy. After hydration his hemodynamics were stable. The patient also has chronic steroid use. He was given stress doses of IV Solu-Medrol. He was slowly tapered off to his present dose of prednisone 5 mg daily. These symptoms were much improved. Hemodynamics were stable. Renal function has come back to normal. Electrolytes were monitored closely during recovery phase of acute kidney injury. Stool cultures were negative. In the meantime, his hospital course was complicated by pancytopenia. Dr. Tamayo was consulted. His reticulocyte count was low. Absolute neutrophil count was almost zero. He was moved to contact isolation and given prophylactic antibiotic with Levaquin. He was started on Granix on a daily basis. He is slowing recovering his white cells, hematocrit, as well as platelets. Dr. Tamayo felt he does not need a bone marrow biopsy at this time. He is going to monitor as an outpatient. The patient is also anxious to go home. LABORATORY DATA: As part of the workup, laboratory data is as follows at the time of discharge. CBC: White cell count 2.5, hematocrit 26, platelets 61. Serum protein electrophoresis: No monoclonal antibody identified. Leukemia/lymphoma flow cytometry is negative. HIV antibody was negative. SMA7 at the time of discharge: Sodium 143, potassium 4.4, chloride 115, BUN 21, creatinine 1.1, glucose 115. A1c 6.1. He also had a significant hypocalcemia which was also replaced. MICROBIOLOGY: Stool occult blood was negative. Stool cultures negative. C. difficile was negative. DISPOSITION: The patient was discharged home in stable condition. IMMUNIZATIONS: Pneumococcal vaccine, 11/01/2016. DISCHARGE MEDICATIONS: 1. Prednisone 5 mg daily. 2. Duloxetine 60 mg 1 cap daily. 3. Ambien 10 mg at bedtime. 4. Hold the blood pressure medicine, amlodipine, losartan 5. Tramadol 50 q.8 as needed. 6. Amitriptyline 25 daily. 7. Protonix 40 daily. 8. Metformin 500 1 tablet p.o. b.i.d. 9. Probenecid 500 p.o. t.i.d. for gout. FOLLOWUP: Follow up in our office next well. Will monitor his CBC, SMA7, and sedimentation rate. Follow up with Dr. Tamayo. The results were discussed with the patient as well as the daughter. cc: Orestes Barrios MD
== END 2016-11-01 10:10 | disposition home or self-care (01) ==
LOC: ED 16:38 → 4N 22:47 → SUATTDRO 22:47 → 3N 10-27 19:02
PROVIDERS: ADMIT Internal Medicine; ATTEND Internal Medicine